=== PATIENT | female | born 1940 | race Caucasian/White ===

== ENCOUNTER 2024-06-30 00:17 | Emergency (ER) | payer MEDICARE, OTHER ==
[~2024-06-30] VITALS: Ht 152.4 cm; Wt 63.5 kg
[2024-06-30] MEDS ORDERED: IBUPROFEN 400 MG TABLET ONE (01:24)
[2024-06-30 01:34] LABS: BASOPHILS % (AUTO) 1.2 % (0.0-2.0); EOSINOPHILS # (AUTO) 0.1 K/uL (0.0-0.7); EOSINOPHILS % (AUTO) 2.5 % (0.0-6.0); HEMATOCRIT 31 % (33-45); HEMOGLOBIN 10.5 g/dL (11.5-14.8); LYMPHOCYTES # (AUTO) 0.8 K/uL (0.8-4.8); LYMPHOCYTES % (AUTO) 29.5 % (20.0-44.0); MEAN CORPUSCULAR HEMOGLOBIN 30 PG (26.0-33.0); MEAN CORPUSCULAR HGB CONC 34 g/dl (31.0-36.0); MEAN CORPUSCULAR VOLUME 89 fL (82-100); MONOCYTES # (AUTO) 0.3 K/uL (0.1-1.30); MONOCYTES % (AUTO) 10.3 % (2.0-12.0); NEUTROPHILS # (AUTO) 1.5 K/uL (1.8-8.9); NEUTROPHILS % (AUTO) 56.5 % (43.0-81.0); PLATELET COUNT (AUTO) 223 K/uL (150-450); RED BLOOD CELL COUNT(AUTO) 3.48 MIL/uL (4.0-5.2); RED CELL DISTRIBUTION WIDTH 14.1 % (11.5-15.0); WHITE BLOOD COUNT (AUTO) 2.7 K/uL (4.3-11.0)
[2024-06-30] MEDS: IBUPROFEN 400 MG TABLET PO ONE (01:35)
[2024-06-30 01:43] LABS: CALCIUM, SERUM 9.2 mg/dL (8.5-10.1); CARBON DIOXIDE 28 mmol/L (21-32); CHLORIDE 103 mmol/L (98-107); CREATININE 1.1 mg/dL (0.6-1.3); GLUCOSE 112 mg/dL (74-106); POTASSIUM 3.7 mmol/L (3.5-5.1); SODIUM SERUM 138 mmol/L (136-145); UREA NITROGEN, BLOOD 24 mg/dL (7-18)
[2024-06-30 01:50] LABS: ALANINE AMINOTRANSFERASE 14 U/L (12-78); ALKALINE PHOSPHATASE 108 U/L (46-116); ASPARTATE AMINOTRANSFERASE 18 U/L (15-37); BILIRUBIN,DIRECT 0.1 mg/dL (0.0-0.2); BILIRUBIN,TOTAL 0.4 mg/dL (0.2-1.0); TOTAL PROTEIN, SERUM 7.6 g/dL (6.4-8.2)
[2024-06-30 02:42] VITALS: BP 156/81; TEMP 98; O2SAT 99
[2024-06-30 02:45] LABS: APPEARANCE,URINE CLEAR (CLEAR); BILIRUBIN,URINE NEGATIVE (NEGATIVE); BLOOD, URINE NEGATIVE Ery/uL (NEGATIVE); COLOR,URINE YELLOW (YELLOW); KETONES,URINE NEGATIVE (NEGATIVE); LEUKOCYTE ESTERASE ,URINE NEGATIVE (NEGATIVE); NITRITE, URINE NEGATIVE (NEGATIVE); PROTEIN,URINE NEGATIVE (NEGATIVE); UGLUCOSE NEGATIVE (NEGATIVE); UROBILINOGEN,URINE 0.2 EU/dL (0.2)
== END 2024-06-30 02:43 | disposition home or self-care (01) ==
LOC: ER 00:19
DX: I10 Essential (primary) hypertension (principal); R51.9 Headache, unspecified; Z60.2 Problems related to living alone
CPT/HCPCS: 36415; 70450-TC; 71045-TC; 80048-TC; 80076-TC; 84484-TC; 85025-TC

== ENCOUNTER 2025-02-25 22:27 | Emergency (ER) | payer MEDICARE, OTHER ==
[~2025-02-25] VITALS: Ht 162.6 cm; Wt 59.9 kg
[2025-02-25] MEDS ORDERED: MECLIZINE HCL 25 MG TABLET ONE (23:11)
[2025-02-25] MEDS ORDERED: ONDANSETRON HCL/PF 4 MG/2 ML VIAL ONE (23:11)
[2025-02-25] MEDS: ONDANSETRON HCL/PF 4 MG/2 ML VIAL IVP ONE (23:16)
[2025-02-25] MEDS: IV NS 0.9% 1,000 ML BAG IV ONE (23:16)
[2025-02-25 23:20] LABS: CALCIUM, SERUM 8.5 mg/dL (8.5-10.1); CREATININE 1.2 mg/dL (0.6-1.3); PLATELET COUNT (AUTO) 236 K/uL (150-450); RED BLOOD CELL COUNT(AUTO) 3.27 MIL/uL (4.0-5.2); RED CELL DISTRIBUTION WIDTH 13.2 % (11.5-15.0); SODIUM SERUM 134 mmol/L (136-145); UREA NITROGEN, BLOOD 23 mg/dL (7-18); WHITE BLOOD COUNT (AUTO) 4.5 K/uL (4.3-11.0)
[2025-02-25 23:21] LABS: ERYTHROCYTE SEDIMENTATION RATE 50 MM/HR (0-30)
[2025-02-25 23:25] LABS: ASPARTATE AMINOTRANSFERASE 17 U/L (15-37); INR 1.04 (0.91-1.10); TOTAL PROTEIN, SERUM 7.6 g/dL (6.4-8.2)
[2025-02-25] MEDS: MECLIZINE HCL 25 MG TABLET PO ONE (23:34)
[2025-02-25 23:41] LABS: APPEARANCE,URINE SLIGHTLY CLOUDY (CLEAR); BLOOD, URINE NEGATIVE Ery/uL (NEGATIVE); LEUKOCYTE ESTERASE ,URINE 1+ (NEGATIVE); NITRITE, URINE NEGATIVE (NEGATIVE); UGLUCOSE NEGATIVE (NEGATIVE)
[2025-02-25] MEDS ORDERED: NITR100C6 PO (23:56)
[2025-02-25] MEDS ORDERED: NITROFURANTOIN/MONOHYDRATE MACROCRYSTALS 100 MG CAPSULE ONE (23:56)
[2025-02-25] MEDS: NITROFURANTOIN/MONOHYDRATE MACROCRYSTALS 100 MG CAPSULE PO ONE (23:58)
[2025-02-26 00:03] LABS: ADD URINE CULTURE YES
[2025-02-26 00:23] VITALS: BP 140/65; TEMP 98; O2SAT 99
== END 2025-02-26 00:29 | disposition home or self-care (01) ==
LOC: ER 22:32
DX: H81.10 Benign paroxysmal vertigo, unspecified ear (principal); N39.0 Urinary tract infection, site not specified; I10 Essential (primary) hypertension; R10.20 Pelvic and perineal pain unspecified side
CPT/HCPCS: 99285; 96374; 70450; 71045; 96361; 93005; 85025; 80048; 80076; 85652; 81001; 36415; 84484; 85730; 82962; 87086; J8597; J2405; J7030